=== PATIENT | male | born 2000 | race Caucasian/White ===

== ENCOUNTER → 2021-03-18 | Outpatient (CLI) | payer BC ==
--- NOTE | 2021-03-18 07:59 | RAD ---
Study: XR EXAM OF ANKLE_LEFT 3V Indication: Left ankle pain. Comparison: None. Findings: In the setting of soft tissue edema at the lateral ankle, suspected subtle avulsion injury off the ti p of the lateral malleolus as noted on the AP view. No gross malalignment at the ankle. Lucency at th e medial talar dome. Faint irregularity at the anterior margin of the tibial plafond on the lateral v iew. No definitive fracture of the partially assessed foot. Impression: 1. Suspected subtle avulsion fracture off the tip of the lateral malleolus in the setting of lateral ankle soft tissue edema. 2. Alignment of the ankle mortise is within normal limits considering the absence of weightbearing. 3. Lucency at the medial talar dome suggestive of an osteochondral lesion. Faint irregularity at the anterior margin of the tibial plafond could indicate chondrosis at this location as well. Electronically signed by: YUSEF ROLON MD (03/18/2021 7:56 AM) [facility]
== END ==
LOC: RAD 07:31
PROVIDERS: ATTEND Nurse Practitioner Family
DX: S99.912A Unspecified injury of left ankle, initial encounter (principal); X58.XXXA Exposure to other specified factors, initial encounter; Y93.89 Activity, other specified; Y92.89 Other specified places as the place of occurrence of the external cause; Y99.8 Other external cause status
CPT/HCPCS: 73610

== ENCOUNTER → 2021-03-20 | Outpatient (CLI) | payer BC ==
--- NOTE | 2021-03-20 10:34 | RAD ---
EXAM: Left ankle, 3 views. HISTORY: Pain. COMPARISON: 03/18/2021 FINDINGS: 3 views of the left ankle are obtained. There is a stable tiny ossific density inferior to the lateral malleolus, suggesting an avulsion fracture of uncertain chronicity. There is stable diffu se ankle soft tissue swelling. There is lucency along the medial talar dome likely due to an osteocho ndral lesion. No cortical collapse is seen. The ankle mortise intact. IMPRESSION: 1. Stable suspected tiny avulsion fracture fragment of uncertain chronicity along the inferior latera l malleolus. 2. Small osteochondral lesion involving the medial talar dome. 3. Left ankle soft tissue swelling. Electronically signed by: Martha Dailey MD (03/20/2021 10:31 AM) [id number]
== END ==
LOC: RAD 09:27
PROVIDERS: ATTEND Podiatrist
DX: M79.89 Other specified soft tissue disorders (principal); M25.572 Pain in left ankle and joints of left foot
CPT/HCPCS: 73610

== ENCOUNTER → 2021-05-03 | Outpatient (CLI) | payer BC ==
--- NOTE | 2021-05-03 14:34 | RAD ---
Left ankle 3 views. HISTORY: Follow-up fracture 3 views were taken the left ankle. Comparison is made with a study from March 20. There is a mild fla tfoot deformity. A fracture is not identified. There is no callus formation noted. Previous possible tiny avulsion is not definitively identified. IMPRESSION: 1. No definitive fracture identified. Electronically signed by: Albert Burger MD (05/03/2021 2:31 PM) [id number]
== END ==
LOC: RAD 14:10
PROVIDERS: ATTEND Physician Assistant
DX: M21.42 Flat foot [pes planus] (acquired), left foot (principal); M25.572 Pain in left ankle and joints of left foot
CPT/HCPCS: 73610